=== PATIENT | female | born 1980 | race Caucasian/White ===

== ENCOUNTER 2020-12-23 17:16 | Emergency (ER) | payer MEDICARE, SELFPAY ==
[2020-12-23 17:22] VITALS: BP 125/83; PULSE 114; O2SAT 99; BMI 22.6
--- NOTE | 2020-12-23 17:48 | W.ED.PSYCH ---
Documented by User: RYAN Mcgarry 12/23/20 18:23 HPI - Psych General: Chief Complaint: Psychiatric Symptoms Stated Complaint: MHE - FEELS LIKE PEOPLE WATCHING HER Time Seen by Provider: 12/23/20 17:23 History of Present Illness: HPI Narrative: Patient is a 40-year-old female comes to the ED for mental health evaluation. Patient is paranoid and very worried that there are people that are trying to hurt her. Patient says she has a couple people that she knows that are trying to hurt her. She states that people think that she is a liability and that she knows some things about certain people and because of that they want to hurt her. She keeps saying do not let them hurt me. She denies any auditory or visual hallucinations, SI, HI. Associated symptoms: Reports delusions; Deny auditory hallucinations, visual hallucinations, homicidal ideation or suicidal ideation Review of Systems Const: Denies: fever(s), chills or fatigue Eyes: Denies: change in vision or eye discomfort ENMT: Denies: throat pain, odynophagia, nasal discharge or nasal congestion Card: Denies: chest pain, palpitations, edema, swelling of feet/ankles, dyspnea on exertion or orthopnea Resp: Denies: dyspnea, productive cough or non-productive cough GI: Denies: abdominal pain, nausea, vomiting, diarrhea, constipation or hematochezia : Denies: flank pain, dysuria or hematuria Musc: Denies: neck pain, back pain or extremity swelling Skin/Breast: Denies: rash or new lesions Neuro: Denies: headache(s), numbness in extremities or weakness in extremities Psych: Reports: paranoia; Denies: visual hallucinations, auditory hallucinations, suicidal ideation or homicidal ideation Physical Exam Narrative: EXAM NARRATIVE: When I knocked before I entered the patient's room she yelled help. I explained her I was the physician veterinarian assistant and she calm down. Const: COMMON NORMALS: no acute distress, patient oriented x3 and alert GENERAL APPEARANCE: comfortable, anxious and other (Patient appears very paranoid and is constantly looking around the room.) HENMT: COMMON NORMALS: normocephalic HEAD & SCALP: normocephalic MOUTH: Normal oral and palatal mucosa present THROAT: posterior oropharynx normal and uvula midline Neck/C-Spine: COMMON NORMALS: supple GENERAL: Yes normal visual inspection Resp: COMMON NORMALS: normal respiratory effort, No retractions, No use of accessory muscles and clear to auscultation bilaterally AUSCULTATION: clear to auscultation bilaterally Cardio: COMMON NORMALS: regular rate, regular rhythm, S1 normal heart sound present, S2 normal heart sound present, No gallops present (Cardio), No clicks present (Cardio), No murmurs present (Cardio) and Peripheral pulses 2+ throughout RATE: regular rate RHYTHM: regular rhythm HEART SOUNDS: S1 normal heart sound present and S2 normal heart sound present PERIPHERAL PULSES: Peripheral pulses 2+ throughout GI: COMMON NORMALS: Normal to inspection, nondistended, normoactive bowel sounds present, Soft to palpation, non-tender and no masses PALPATION: Yes Soft to palpation : COMMON NORMALS: Yes no CVA tenderness BLADDER/KIDNEY EXAM: Yes no CVA tenderness Back/Pelvis: COMMON NORMALS: no CVA tenderness Extremity: COMMON NORMALS: normal to inspection Neuro: COMMON NORMALS: patient oriented x3 and moves all extremities SENSORIUM/ORIENTATION: Yes alert Psych: COMMON NORMALS: speech normal ATTITUDE: Yes calm ACTIVITY/MOTOR BEHAVIOR: Yes appropriate eye contact SPEECH: Yes normal speech THOUGHT CONTENT: No Suicidality present, No Homicidality present, Yes delusions Delusional thought content details: paranoid and No Hallucination(s) present ATTENTION/CONCENTRATION: Yes attention grossly intact and Yes concentration grossly intact MEMORY/COGNITION: Yes memory grossly intact and Yes cognition grossly intact INSIGHT: Good insight present (Psych) JUDGEMENT: Fair judgement present (Psych) OTHER: Patient appeared paranoid but upon reevaluation her demeanor changed and she told me she felt bad but she has been lying about being paranoid this whole time. She admits to being a drug addict and was hoping that if she came here to the ED and she told the story she would get some drugs. Skin: GENERAL SKIN EXAM: dry skin Course Reevaluation(s): Reevaluation #1: I went back into patient's room to reevaluate her and discuss possible plan. Patient's demeanor changed and said that she has been pretending she is paranoid this whole time because she is a drug and thought she might get some drugs while she is here. She stated that she is sorry for wasting people's time. I asked again if she has any thoughts of SI, HI or paranoia and she denied all of them. She repeatedly apologized to me for lying. Time: 18:10 Vital Signs: Vital signs: Vital Signs Pulse Rate 114 H 12/23/20 17:22 Blood Pressure 125/83 12/23/20 17:22 Pulse Oximetry 99 12/23/20 17:22 MDM - Psych MDM Narrative: Medical decision making narrative: Patient is a 40-year-old female comes to the ED for mental health evaluation. Patient is acting paranoid and says that people are trying to hurt her. I went back into patient's room to reevaluate her and discuss possible plan. Patient's demeanor changed and said that she has been pretending she is paranoid this whole time because she is a drug and thought she might get some drugs while she is here. She stated that she is sorry for wasting people's time. I asked again if she has any thoughts of SI, HI or paranoia and she denied all of them. She repeatedly apologized to me for lying. Patient diagnosed with malingering and discharged home. I spoke with Dr. Mena about patient case and he evaluated her as well and agreed with plan for patient to be discharged home. Discharge Plan Discharge Patient Disposition: Home Clinical Impression: Malingering Condition: Stable Discharge Orders: Discharge ED (Routine); Ordered 12/23/20 Ordered By: Jose Mcdonald Discharge Diet: Regular Discharge Activity: Resume usual activity Activity Restrictions/Additional Instructions: Follow-up with medical provider as directed. Continue taking any home medications as previously prescribed. Return to the ER or your medical provider if condition worsens. Please read and understand discharge instructions. Thank you for choosing [facility] for your healthcare needs today. Please realize this is an emergency room and that we are providing you with a medical screening exam and this may not be complete and all inclusive of all the testing and or work up that you may need to determine your ailment or severity of your illness. It is very important that you follow up as instructed or that you return to the Emergency Department should you have concerns or if your condition changes or worsens in any way. 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 My spoke to her she is told me she was just trying to get some drugs by acting psychotic. She sent in the room acting completely normal at this time. She is answering all my questions appropriately has no hallucinations. She denies any suicidal homicidal thoughts. I believe she is just malingering and she is stable for discharge. Discharge Plan Discharge Patient Disposition: Home Clinical Impression: Malingering Condition: Stable Discharge Orders: Discharge ED (Routine); Ordered 12/23/20 Ordered By: Jose Mcdonald Discharge Diet: Regular Discharge Activity: Resume usual activity Activity Restrictions/Additional Instructions: Follow-up with medical provider as directed. Continue taking any home medications as previously prescribed. Return to the ER or your medical provider if condition worsens. Please read and understand discharge instructions. Thank you for choosing [facility] for your healthcare needs today. Please realize this is an emergency room and that we are providing you with a medical screening exam and this may not be complete and all inclusive of all the testing and or work up that you may need to determine your ailment or severity of your illness. It is very important that you follow up as instructed or that you return to the Emergency Department should you have concerns or if your condition changes or worsens in any way. Coding Level of Care Code ED [employer]el Retrofit Designer for [employer]ara Exam Comprehensive
== END 2020-12-23 18:23 | disposition home or self-care (01) ==
PROVIDERS: Emergency Provider Physician Assistant
DX: Z76.5 Malingerer [conscious simulation] (principal)
CPT/HCPCS: 99283